=== PATIENT | female | born 1990 | race African-American/Black ===

== ENCOUNTER 2020-02-11 22:23 | Emergency (ER) | payer OTHER ==
[2020-02-11 22:31] VITALS: BP 115/70; PULSE 80; TEMP 99.3; BMI 27.1
--- NOTE | 2020-02-11 22:41 | PDOC ---
History of Present Illness - General Chief Complaint: Abnormal Lab Results (Outside) Stated Complaint: STATES HER HGB IS LOW Time Seen by Provider: 02/11/20 22:30 History Source: Patient Exam Limitations: No Limitations - History of Present Illness Initial Comments: 02/11/20 22:41 This is a 20-year-old female who comes in complaining of a low hemoglobin. Patient went to her primary care doctor today for routine physical and checkup and was told that her hemoglobin was 6.5. Patient said she does have heavy menses but otherwise denies any dark tarry stools or bright red blood per rectum. Patient said that she initially went to the primary care doctor because she gets severe menstrual cramps. Allergies: as per nursing notes Past Medical History: none Social history: Lives with family. No smoking. No alcohol. No illicit drugs. Surgical history: None General: No fevers or chills, no weakness, no weight loss HEENT: No change in vision. No sore throat,. No ear pain CardioVascular: no chest discomfort. No shortness of breath Respiratory:No cough, or wheezing. Gastrointestinal: no nausea, vomiting, diarrhea or constipation, No rectal bleeding Genitourinary: No dysuria, hematuria, or frequency Musculoskeletal: No joint or muscle pain or swelling Neurologic: No headache, vertigo, dizziness or loss of consciousness Psychiatric: nor depression Skin: No rashes or easy bruising Endocrine: no increased thirst or abnormal weight change Allergic: no skin or latex allergy All other systems reviewed and normal Exam: General: Well-nourished well-developed individual, no acute distress HEENT: Throat: Normal, tonsils normal, no erythema or exudate Neck: Supple, no meningeal signs, no lymphadenopathy Eyes::Pupils equal reactive and round, extraocular motion intact Chest: Nontender to palpation Cardiac: S1-S2 normal, regular rate and rhythm, no murmurs rubs or gallops Respiratory: Lungs clear to auscultation bilateral Abdomen: Soft, nondistended, normal bowel sounds, there is no tenderness on palpation diffusely Rectal: Brown stool nontender exam guaiac negative Extremities: Warm, dry, no cyanosis, clubbing, or edema Skin: No rashes Neuro: Alert and oriented x3, CN II - XII intact, nonfocal exam with normal strength, normal sensation, normal reflexes, normal gait, Psych: Normal mood and affect Past History - Medical History Allergies/Adverse Reactions: Allergies Allergy/AdvReac Type Severity Reaction Status Date / Time No Known Allergies Allergy Verified 02/11/20 22:25 Home Medications: Ambulatory Orders Ferrous Fumarate [Ferrocite] 324 mg PO DAILY #30 tablet 02/11/20 ED Treatment Course - LABORATORY CBC & Chemistry Diagram: 02/11/20 22:45 02/11/20 22:45 Discharge - Discharge Information Problems reviewed: Yes Clinical Impression/Diagnosis: Iron deficiency anemia Qualifiers: Iron deficiency anemia type: unspecified iron deficiency Qualified Code(s): D50.9 - Iron deficiency anemia, unspecified Condition: Stable Disposition: HOME - Admission No - Follow up/Referral - Patient Discharge Instructions Additional Instructions: The prescription filled for iron tablets and take 1 a day. Follow-up with your primary care doctor to be further evaluated for your anemia including evaluation for pernicious anemia Return to the emergency department immediately with ANY new, persistent or worsening symptoms. Continue any medications as previously prescribed by your physician. You should follow up with your primary doctor as soon as possible regarding today's emergency department visit. . Please make sure your doctor reviews the results of your emergency evaluation. Thank you for coming to the Emergency Department today for your care. It was a pleasure to see you today. Please note that your evaluation is INCOMPLETE until you follow-up with your doctor. - Post Discharge Activity
[2020-02-11 23:04] LABS: BASO % 1.8 % (0-2.0); EOS % 2.8 % (0-4.5); HEMATOCRIT 23.4 % (32.4-45.2); LYMPH % 48.1 % (8-40); MCHC 29.6 g/dl (32.0-36.0); MEAN CELL VOLUME 60.2 fl (80-96); MEAN PLT VOLUME 9.4 fl (7.5-11.1); MONO % 9.3 % (3.8-10.2); PLATELET COUNT 186 K/MM3 (134-434); RBC 3.88 M/mm3 (3.60-5.2); RDW 16.2 % (11.6-15.6); WHITE BLOOD COUNT 5.1 K/mm3 (4.0-10.8)
[2020-02-11 23:05] LABS: MCH 17.9 pg (25.7-33.7)
[2020-02-11 23:06] LABS: ADD RBC MORPHOLOGY YES; HEMOGLOBIN 6.9 GM/dl (10.7-15.3)
[2020-02-11 23:09] LABS: ALBUMIN 4.1 g/dl (3.4-5.0); BILIRUBIN,TOTAL 0.1 mg/dl (0.2-1); CALCIUM 8.7 mg/dl (8.5-10); CREATININE 0.7 mg/dl (0.55-1.3); POTASSIUM 3.6 mmol/L (3.5-5.1); TOT PROT 7.7 g/dl (6.4-8.2)
[2020-02-11 23:39] LABS: ANISOCYTOSIS 2+
[2020-02-11 23:40] LABS: OVALOCYTE 2+; PLATELET ESTIMATE ADEQUATE; TEAR DROP CELLS 1+
== END 2020-02-11 23:22 | disposition home or self-care (01) ==
LOC: EDBD 22:23 → FER 22:23
DX: D50.9 Iron deficiency anemia, unspecified (principal)
CPT/HCPCS: 36415; 80053; 85025; 99284-25